=== PATIENT | male | born 1960 | race Caucasian/White ===

== ENCOUNTER → 2019-10-27 14:52 | Outpatient (BNVA) | payer SELFPAY | PROVIDERS: Family Provider Family Medicine; PCP Family Medicine; Visit Provider Nurse Practitioner | DX: F33.3 Major depressive disorder, recurrent, severe with psychotic symptoms (principal) | CPT/HCPCS: 99213 ==

== ENCOUNTER → 2020-04-21 07:41 | Outpatient (BNVA) | payer SELFPAY | PROVIDERS: Family Provider Family Medicine; PCP Family Medicine; Visit Provider Nurse Practitioner | DX: F33.3 Major depressive disorder, recurrent, severe with psychotic symptoms (principal) | CPT/HCPCS: 99214 ==

== ENCOUNTER → 2020-06-09 09:04 | Outpatient (BNVA) | payer SELFPAY | PROVIDERS: Family Provider Family Medicine; PCP Family Medicine; Visit Provider Nurse Practitioner | DX: F33.3 Major depressive disorder, recurrent, severe with psychotic symptoms (principal) | CPT/HCPCS: 99214 ==

== ENCOUNTER → 2020-08-25 08:29 | Outpatient (BNVA) | payer SELFPAY | PROVIDERS: Family Provider Family Medicine; PCP Family Medicine; Visit Provider Nurse Practitioner | DX: F33.3 Major depressive disorder, recurrent, severe with psychotic symptoms (principal) | CPT/HCPCS: 99214 ==

== ENCOUNTER → 2020-10-14 10:17 | Outpatient (BNVA) | payer SELFPAY | PROVIDERS: Family Provider Family Medicine; PCP Family Medicine; Visit Provider Nurse Practitioner | DX: F33.3 Major depressive disorder, recurrent, severe with psychotic symptoms (principal); F41.1 Generalized anxiety disorder | CPT/HCPCS: 99214 ==

== ENCOUNTER → 2021-01-03 14:00 | Outpatient (BNVA) | payer MEDICARE, SELFPAY | PROVIDERS: Family Provider Family Medicine; PCP Family Medicine; Visit Provider Nurse Practitioner | DX: Z79.899 Other long term (current) drug therapy (principal); F41.1 Generalized anxiety disorder; F33.3 Major depressive disorder, recurrent, severe with psychotic symptoms | CPT/HCPCS: 99214 ==

== ENCOUNTER 2021-01-04 10:25 | Outpatient (CLI) | payer MEDICARE, SELFPAY ==
--- NOTE | 2021-01-04 10:47 | XR_ITS ---
WS: [id number] LUMBAR SPINE TECHNIQUE: 3 views of the lumbar spine CLINICAL INFORMATION: LUMBAGO COMPARISON: None. FINDINGS: Five [id number] lumbar vertebral bodies. Osteopenia. Mild spondylitic changes lumbar spine. Aort ic calcification. Slight retrolisthesis L3 on L4 and L4 on L5. Moderate facet arthropathy L4-L5 and L 5-S1. Mild disc space narrowing worse at L3-L4 and L5-S1. No acute compression fractures. XR/XR lumbar spine 2-3V* [id number] IMPRESSION: 1. Mild lumbar curve convex left with osteopenia. 2. Mild spondylitic changes with disc space narrowing worse at L3-L4 L5-S1. 3. No acute compression fractures. 4. Moderate facet arthropathy L4-L5 and L5-S1.
== END 2021-01-04 10:26 | disposition home or self-care (01) ==
PROVIDERS: PCP Nurse Practitioner Family; Visit Provider Nurse Practitioner Family
DX: M54.5 Low back pain (principal); M85.88 Other specified disorders of bone density and structure, other site; M47.816 Spondylosis without myelopathy or radiculopathy, lumbar region; M47.817 Spondylosis without myelopathy or radiculopathy, lumbosacral region
CPT/HCPCS: 72100

== ENCOUNTER → 2021-05-12 07:57 | Outpatient (BNVA) | payer MEDICARE, MEDICAID, SELFPAY | PROVIDERS: PCP Nurse Practitioner Family; Visit Provider Nurse Practitioner | DX: F33.3 Major depressive disorder, recurrent, severe with psychotic symptoms (principal); F41.1 Generalized anxiety disorder | CPT/HCPCS: 99214 ==

== ENCOUNTER 2021-07-18 14:45 | Outpatient (RCR) | payer MEDICARE, SELFPAY | END 2021-07-23 23:59 | disposition home or self-care (01) | LOC: SPT 14:45 | PROVIDERS: PCP Nurse Practitioner Family; Visit Provider Nurse Practitioner Family | DX: R53.1 Weakness (principal) | CPT/HCPCS: 97161 ==

== ENCOUNTER 2021-07-24 06:00 | Outpatient (RCR) | payer MEDICARE, SELFPAY | END 2021-08-22 23:59 | disposition home or self-care (01) | LOC: SPT 06:00 | PROVIDERS: PCP Nurse Practitioner Family; Visit Provider Nurse Practitioner Family | DX: R53.1 Weakness (principal) | CPT/HCPCS: 97110; 97116 ==

== ENCOUNTER → 2021-08-09 15:05 | Outpatient (BNVA) | payer MEDICARE, SELFPAY | PROVIDERS: PCP Nurse Practitioner Family; Visit Provider Nurse Practitioner | DX: F33.3 Major depressive disorder, recurrent, severe with psychotic symptoms (principal); F41.1 Generalized anxiety disorder | CPT/HCPCS: 99214 ==

== ENCOUNTER 2022-02-18 10:08 | Inpatient (IN) | payer MEDICARE, SELFPAY ==
[2022-02-18] VITALS (35 sets, daily range): BP systolic 107–193; BP diastolic 58–141; PULSE 80–129; RESP 10–43; TEMP 36.5–37.1; O2SAT 92–98; BMI 31.1
--- NOTE | 2022-02-18 10:25 | ECG_ITS ---
[facility] Test Date: 2022-02-18 Pat Name: Jose Juan Zapata Department: Room: ICU12 Gender: Male Doctor Of Dental Surgery: : 1960 Requested By: Ramin Perez Order Number: [id number] Magi MD: Fer Vega M.D. Measurements Intervals [place] Rate: 111 P: 60 TX: 166 QRS: -12 QRSD: 97 T: -58 QT: 363 QTc: 494 Interpretive Statements SINUS TACHYCARDIA INFERIOR WALL ST ELEVATION AK OF INDETERMINATE AGE Compared to ECG 02/18/2022 10:25:28 Intraventricular conduction delay no longer present ST (T wave) deviation no longer present Myocardial infarct finding no longer present Electronically Signed On 02-18-2022 20:26:03 CDT by Fer Vega M.D. [id number]
--- NOTE | 2022-02-18 10:25 | XRR_ITS ---
PROCEDURE INFORMATION: Exam: XR Chest Exam date and time: 02/18/2022 10:32 AM Age: 61 years old Clinical indication: Pain; Chest pressure; Additional info: Cp TECHNIQUE: Imaging protocol: XR of the chest. Views: 1 view. COMPARISON: CR Chest 2 views* [id number] 06/13/2018 5:03 PM FINDINGS: Lungs: The lung parenchyma is clear. Pleural spaces: No pneumothorax. No pleural effusion. Heart/Mediastinum: The cardiomediastinal silhouette is within normal limits. Bones/joints: Unremarkable. XR/XR chest 1V portable [id number] IMPRESSION: No acute cardiopulmonary abnormality.
--- NOTE | 2022-02-18 10:29 | ED_ITS ---
HPI - Chest Pain General: Chief Complaint: Chest Pain Stated Complaint: CP Time Seen by Provider: 02/18/22 10:25 Source: patient Mode of arrival: ambulatory Limitations: no limitations History of Present Illness: 61-year-old male states that he has had some left- sided chest pain along with pain into his shoulder since this morning. States pain is a pressure type pain rates it a 6 out of 10. Does have a history of high blood pressure he denies any cardiac history. He states his pain is currently a 7 out of 10 denies any worsening improving factors denies any shortness of breath or fever. Associated symptoms: Deny abdominal pain, dyspnea, fever(s), nausea or vomiting Review of Systems Const: Denies: fever(s), chills, body aches or change in appetite Eyes: Denies: blurry vision or eye discomfort ENMT: Denies: throat pain or dental pain Card: Reports: chest pain Resp: Denies: dyspnea GI: Denies: abdominal pain, nausea, vomiting or diarrhea : Denies: dysuria Musc: Denies: neck pain or back pain Skin/Breast: Denies: rash Neuro: Denies: headache(s) Psych: Denies: depression Gomez/Lymph: Denies: easy bruising All/Imm: Denies: urticaria PFSH ED PFSH: Medical History Generalized anxiety disorder Major depressive disorder, recurrent, severe with psychotic symptoms On combination antipsychotic drug therapy Psychiatric care Social History Smoking and tobacco status: former smoker Physical Exam Const: COMMON NORMALS: patient oriented x3 HENMT: COMMON NORMALS: normocephalic and atraumatic HEAD & SCALP: normocephalic and atraumatic Eye: COMMON NORMALS: Equal, round and reactive pupils present and EOMs intact bilaterally PUPIL: Yes Equal, round and reactive pupils present Neck/C-Spine: COMMON NORMALS: full ROM and supple Chest: COMMONS NORMALS: normal inspection of the chest and normal palpation of entire chest wall Resp: COMMON NORMALS: normal respiratory effort, No retractions, No use of accessory muscles and clear to auscultation bilaterally AUSCULTATION: clear to auscultation bilaterally Cardio: COMMON NORMALS: regular rate, regular rhythm and No murmurs present (Cardio) RATE: regular rate RHYTHM: regular rhythm GI: COMMON NORMALS: Normal to inspection, nondistended, normoactive bowel sounds present, Soft to palpation, non-tender and no masses PALPATION: Yes Soft to palpation Extremity: COMMON NORMALS: normal to inspection and full ROM Neuro: COMMON NORMALS: patient oriented x3, moves all extremities and no focal motor deficits Psych: COMMON NORMALS: mental status grossly normal, Normal thought process present and cooperative THOUGHT PROCESS: Normal thought process present Skin: COMMON NORMALS: no rashes or lesions noted and no wounds GENERAL SKIN EXAM: no rashes or lesions noted Course Vital Signs: Vital signs: Vital Signs Temperature 97.7 F 02/18/22 10:11 Pulse Rate 105 H 02/18/22 10:11 Respiratory Rate 22 H 02/18/22 10:11 Pulse Oximetry 98 02/18/22 10:11 MDM - Chest Pain Medical Decision Making Patient presents here with chest pain EKG shows an ST elevation [place] Operating Room Nurse was activated patient given aspirin , heparin and Plavix and taken to the Operating Room Nurse. EKG Data EKG 1: I personally reviewed and interpreted this EKG as follows: EKG interpretation date: 02/18/22 EKG interpretation time: 10:25 Interpretation: sinus tach hr 120 st elevation ii, iii, avf Discharge Plan Discharge Patient Disposition: Admitted As Inpatient Clinical Impression: ST elevation myocardial infarction (STEMI) Condition: Stable Prescriptions: No Action lisinopril-hydrochlorothiazide 20-12.5 mg tablet 1 tab PO DAILY 0RF cephalexin 500 mg capsule 500 mg PO BID 7 Days Qty: 14 0RF mupirocin 2 % ointment 1 applic topical BID 14 Days Qty: 22 1RF Jardiance 10 mg tablet 10 mg PO QAM 0RF trazodone 50 mg tablet 50 mg PO .HS Qty: 30 2RF fluoxetine [Prozac] 40 mg capsule 40 mg PO DAILY Qty: 30 2RF aripiprazole [Abilify] 5 mg tablet 5 mg PO DAILY Qty: 30 2RF clonazepam 0.5 mg tablet 0.5 mg PO DAILY PRN (Reason: anxiety) Qty: 30 2RF Referrals: Jame Moore NP [Primary Care Provider] - Coding Level of Care Code ED Training And Documentation Specialist for Chg Cain
[2022-02-18] MEDS: heparin 5,000 unit/mL INJ 1 mL 4000 UNIT IVP (10:31)
--- NOTE | 2022-02-18 10:31 | XACV_ITS ---
Exam Room: 2 Ht: 183 cm Wt: 100 kg BSA: 2.27 m2 Gender: Male : 1960 Exam Priority: Routine Procedure(s): Procedure Description: Diagnostic procedure Procedure Description: PCI procedure Procedure Description: Coronary IVUS Procedure Description: Drug Eluting Coronary Stent Procedure Description: PTCA Procedure Description: Miscellaneous Procedure Description: ACT Procedure Description: Coronary Angiography Diagnostic Cath Status: Emergency Diagnostic Findings * Left Main has no disease. * Circumflex has no disease. * Proximal Left Anterior Descending: obstructive 60% stenosis, MABEL: 3 flow. * Proximal Right Coronary Artery: subtotal occlusion, MABEL: 1 flow. * Coronary angiography shows right dominance. PCI Status: Emergency PCI Indication: STEMI - Immediate PCI for STEMI Interventional Findings * PROCEDURE DETAIL: We engaged RCA with JR4 guide catheter. IV heparin was administered to maintain ACT above 250 S. 0.014 run-through guidewire was used to cross of proximal RCA stenosis. This was followed by predilation with 2.5 x 12 mm noncompliant balloon. We used IVUS to size the artery. This was followed by placement of 4.5 x15 mm resolute Heron drug-eluting stent. Post stenting IVUS was performed and is negative underexpansion was seen. We postdilated the stent with 4.5 x 12 mm NC balloon. At this time final angiogram showed excellent stent expansion, MABEL-3 flow and no residual stenosis. Patient left the Guest Services Agent in stable condition. * Proximal Right Coronary Artery: 99% stenosis treated with a AB TREK 2.50X12 RX BALLOON, MDT R HERON 4.5X15 MOLLY, and MDT WALDEMAR EUPHORA RX [id number] BALLOON. 0% residual stenosis, MABEL: 3 flow. Conclusions 1. There is subtotal occlusion of proximal RCA. This is the culprit vessel for ST elevation [place]. 2. Moderate LAD stenosis. 3. Proximal Right Coronary Artery was treated with a Balloon, Drug Eluting Stent, and Balloon. Recommendations * Transfer to ICU. * Aspirin and plavix for atleast 1 year. * High intensity statin therapy. * Order echocardiogram. * Outpatient stress test to assess proximal LAD stenosis. * Outpatient cardiology follow up in 4 weeks. Interventional RX Recommendation: PCI w/o planned CABG Diagnostic RX Recommendation: PCI w/o planned CABG Anticoagulation: Heparin Pressures Phase:Rest AO : 157 / 112 ( 134 ) @ 12:03:00 PM 145 / 102 ( 119 ) @ 12:18:00 PM 156 / 106 ( 129 ) @ 12:22:00 PM 155 / 100 ( 125 ) @ 12:25:00 PM Clinical Evaluation EBL: 5mL-10mL Procedural Details Pre-Procedure Time Out. Identified patient by full name and date of as verbalized by the patient/guarantor. Does the consent match the physician's order: N/A Emergent; Informed Consent not obtained due to time critical life threat. Accurate & Complete Informed Consent: N/A Emergent; Informed Consent not obtained due to time critical life threat. Inpatient/Outpatient History & Physical on Chart: N/A Emergent; Informed Consent not obtained due to time critical life threat. If H&P is completed, is and addenduem needed: N/A; If yes, is the addendum complete: N/A. Visualize and Verify Site with Patient/Guarantor: N/A. Relevant Radiology Images available: N/A. The risks, benefits, and alternatives of sedation and/or procedure were discussed by physician. The patient agrees to continue. Procedure started. [facility] Clinical Fraility Score: 3: Managing Well. Guest Services Agent Indications: ACS <= 24 hours. Chest Pain Symptom Assessment: Typical Angina Symptoms. Cardiovascular Instability: No, if yes, Persistant Ischemic Symptoms. Correct patient, site and procedure confirmed by cath team. Current diagnosis: STEMI. PERRLA. Strong, equal hand bruise trimmer bilaterally. Lungs clear x 5 lobes. IV Site on Arrival: 20 gauge in the left anticubital. IV Fluids: 0.9% NaCl at KVO. 0 mL infused prior to wheelabrator operator. Pre Procedural Pulses: bilateral radial was 2+. Pre Procedural Pulses: bilateral dorsalis pedis was 2+. Oxygen started at 2liters/min via nasal canula. right groin was prepped with chloroprep then draped in the usual sterile fashion. right radial was prepped with chloroprep then draped in the usual sterile fashion. Physician notified. Baseline sample Acquired. HR: 110 BPM. Physician arrived. Physician scrubbed in. Immediate Pre-Procedure Time Out. Correct Patient: Yes; Correct Procedure: Yes; Correct Site: Yes; Correct Patient Position: Yes; Correct Supplies: Yes; Dried Flammable Prep: Yes Blood Products Available: N/A;. Lidocaine 1% infiltrated to the right radial. AP pads applied to patient chest. Arterial access obtained. 6 latvian JR 4 guide catheter was inserted over the wire. Runthrough guidewire was advanced through the guide catheter to lesion in the prox RCA. Inflation number : 1 A AB TREK 2.50X12 RX BALLOON was prepped and advanced across the Prox RCA , then inflated to 12 MIGUEL ANGEL for 0:12 seconds. Inflation number: 2 The AB TREK 2.50X12 RX BALLOON was reinflated across the Prox RCA, to 12 MIGUEL ANGEL for 0:15 seconds. Balloon inserted to lesion in the prox RCA. Balloon out. Results checked. IVUS catheter advanced through the prox RCA lesion. IVUS run performed of Prox RCA. IVUS catheter removed. Stent inserted to lesion in the prox RCA. Unable to cross lesion with stent. Intact stent removed. Guideliner catheter inserted and positioned in RCA. Stent inserted to lesion in the prox RCA. Admit Source: Emergency department. Inflation Number : 3 A RACHEL Millan HERON 4.5X15 MOLLY -Lot Number# [id number] Exp 09/27/2022 was prepped and advanced across the Prox RCA. The stent was deployed at 14 MIGUEL ANGEL for 0:20 seconds. Guideliner and stent balloon removed over the wire. Results checked. ACT drawn. Results 369 seconds. Therapeutic limits - pre-heparin administration 90-150 seconds and monitoring heparin during a vascular procedure >250 seconds. IVUS catheter reinserted to Prox RCA. Balloon inserted to lesion in the prox RCA. IVUS catheter removed. Inflation number : 4 A RACHEL MEDEIROS EUPHORA RX [id number] BALLOON was prepped and advanced across the Prox RCA , then inflated to 12 MIGUEL ANGEL for 0:16 seconds. IVUS run performed to Prox RCA. Balloon out. Results checked. Guide catheter and Runthrough wire out. A 5 latvian TIG catheter in over wire. Multiple views taken of left coronary artery. Catheter redirected to the RCA. ACT drawn. Results 231 seconds. Therapeutic limits - pre-heparin administration 90-150 seconds and monitoring heparin during a vascular procedure >250 seconds. Catheter out. A TR Band was successful obtaining hemostatsis at the Right Radial artery insertion site. Post Procedure: Pulses reassessed and unchanged. PERRLA. Strong, equal hand bruise trimmer bilaterally. No VTE prophylaxis required. Total IV fluids: 250 mL. Medication's Wasted: Lidocaine 1% = 6 mL. Medication's Wasted: Nitro = 49.8 mg. Medication's Wasted: Heparin = 3000 u. PCI Indication: STEMI. Post-op diagnosis: STEMI, Severe obstructive CAD Prox RCA. Complications: none. Estimated blood loss: 5mL-10mL. Responsiveness - Normal response to verbal stimuli; alert and oriented, PERRLA. Airway - Unaffected, no intervention required; spontaneous ventilation. Circulation: W/N/L, pulses unchanged. Nausea/Vomiting: No. Procedure completed. Patient transferred by wheelchair to ICU. Vital chart was stopped. Access Site Site: Right Radial artery Sheath Size: 6 Fr Hemostasis Method: TR Band Hemostasis Success: Successful Procedure Medications Start: 10:58 AM Stop: 10:58 AM Medication: Versed Amount: 1 mg Route: I.V. Start: 10:59 AM Stop: 10:59 AM Medication: Fentanyl Amount: 50 mcg Route: I.V. Start: 11:03 AM Stop: 11:03 AM Medication: Heparin Amount: 4000 units Route: I.V. Start: 11:10 AM Stop: 11:10 AM Medication: Heparin Amount: 2000 units Route: I.V. Start: 11:29 AM Stop: 11:29 AM Medication: Versed Amount: 1 mg Route: I.V. Start: 11:03 AM Stop: 11:03 AM Medication: Nitrogylcerin Amount: 200 mcg Route: I.A. Start: 11:35 AM Stop: 11:35 AM Medication: Heparin Amount: 2000 units Route: I.V. I, the attending physician, have reviewed and verified all procedure medications. Yes, all medications given per verbal order Report Signatures Finalized by Fer Vega MD on 02/25/2022 11:54 PM
[2022-02-18] MEDS: clopidogrel 300 mg Tablet 600 MG PO (10:32)
[2022-02-18] MEDS: aspirin 81 mg Chew Tablet 324 MG PO (10:32)
[2022-02-18] MEDS: ondansetron 2 mg/ML SDV 2 mL 4 MG IVP ×2 (10:37→14:52)
[2022-02-18] MEDS: morphine 4 mg/mL SDV 1 mL IVP (10:37)
[2022-02-18 10:42] LABS: Basophils # 0.1 10^3/uL (0.0-0.1); Basophils % 0.6 %; Eosinophils # 0.1 10^3/uL (0.0-0.8); Eosinophils % 0.6 %; Hematocrit 50.6 % (42.0-52.0); Hemoglobin 18.1 g/dL (11.7-16.6); Lymphocytes # 2.1 10^3/uL (0.8-4.8); Lymphocytes % 16.5 %; Mean Corpuscular HGB Conc 35.8 g/dL (30.0-36.0); Mean Corpuscular Hemoglobin 29.4 pg (28.0-34.0); Mean Corpuscular Volume 82.1 fl (80-94); Monocytes # 0.9 10^3/uL (0.2-0.9); Monocytes % 7.3 %; Neutrophils # 9.39 10^3/uL (1.8-7.7); Neutrophils % 74.1 %; Nucleated Red Blood Cells % 0 %; Platelet Count 177 10^3/cmm (130-400); Red Blood Count 6.16 10^6/uL (4.1-5.3); Red Cell Distribution Width 12.6 % (12.1-15.1); White Blood Count 12.7 10^3/uL (4.0-10.0)
--- NOTE | 2022-02-18 10:45 | PM.HP ---
Providers/Chief Complaint Admitting Physician: Fer Vega MD/ Cardiology Primary Care Provider: Jame Moore NP Chief Complaint: CP History of Present Illness Jose Juan Zapata is a 61 year old male with a past medical history of hypertension and diabetes not taking any medications has presented with 2 to 3 hours of chest pain symptoms. It is substernal and radiating to the left arm. EKG performed shows ST elevations in inferior leads. Denies any prior cardiac history. Review of Systems Const: Denies: fever(s), chills, body aches or change in appetite Eyes: Denies: blurry vision or eye discomfort ENMT: Denies: throat pain or dental pain Card: Reports: chest pain Resp: Denies: dyspnea GI: Denies: abdominal pain, nausea, vomiting or diarrhea : Denies: dysuria Musc: Denies: neck pain or back pain Skin/Breast: Denies: rash Neuro: Denies: headache(s) Psych: Denies: depression Gomez/Lymph: Denies: easy bruising All/Imm: Denies: urticaria Medications/Allergies Home Medications Medication Instructions Recorded Confirmed Last Taken Type lisinopril 20 1 tab PO DAILY 10/27/19 08/24/21 Unknown History mg-hydrochlorothiazide 12.5 mg tablet cephalexin 500 mg capsule 500 mg PO BID 7 Days #14 cap 08/08/21 08/24/21 Unknown Rx mupirocin 2 % topical ointment 1 applic TOPICAL BID 14 Days #22 g 08/08/21 08/24/21 Unknown Rx aripiprazole 5 mg tablet (Abilify) 5 mg PO DAILY #30 tab 08/09/21 08/24/21 Unknown Rx clonazepam 0.5 mg tablet 0.5 mg PO DAILY PRN #30 tab 08/09/21 08/24/21 Unknown Rx empagliflozin 10 mg tablet 10 mg PO QAM 08/09/21 08/24/21 Unknown History (Jardiance) fluoxetine 40 mg capsule (Prozac) 40 mg PO DAILY #30 cap 08/09/21 08/24/21 Unknown Rx trazodone 50 mg tablet 50 mg PO .HS #30 tab 08/09/21 08/24/21 Unknown Rx Allergies Allergy/AdvReac Type Severity Reaction Status Date / Time Sulfa (Sulfonamide Allergy Unknown Verified 02/18/22 10:11 Antibiotics) PFSH Acute PFSH: Medical History Generalized anxiety disorder Major depressive disorder, recurrent, severe with psychotic symptoms On combination antipsychotic drug therapy Psychiatric care Social History Smoking and tobacco status: former smoker Vitals/I&O/Wt Last Vital Signs Temp 97.7 F 02/18/22 10:11 Pulse 105 H 02/18/22 10:11 Resp 18 02/18/22 10:37 Pulse Ox 98 02/18/22 10:11 Weight last 48 hrs Weight 230 lb Physical Exam Const: OTHER: GENERAL: Patient is alert, awake and oriented x3. [] NECK: No jugular vein distension. [] HEENT: No cyanosis. No icterus. No pallor. [] HEART: Tachycardia, regular S1 and S2. No murmur, rub or gallop. [] LUNGS: Clear to auscultate bilaterally. [] ABDOMEN: Soft, nontender and nondistended. Positive bowel sounds. No guarding, rebound or tenderness. [] CENTRAL NERVOUS SYSTEM: Grossly nonfocal. [] EXTREMITIES: Lower extremities with no edema bilaterally. Pulses palpable in the lower extremities, both dorsalis pedis and posterior tibial. [] Data : 02/18/22 10:30 02/18/22 10:30 A&P Assessment and plan (1) ST elevation myocardial infarction (STEMI): Status: Acute (2) Generalized anxiety disorder: Status: Acute (3) Major depressive disorder, recurrent, severe with psychotic symptoms: Status: Acute (4) Hypertension: Status: Acute (5) Diabetes: Status: Acute Plan Patient has presented with inferior wall acute ST elevation [place]. We are proceeding with emergent coronary angiogram with possible percutaneous coronary intervention. Risks and benefit of the procedure of been discussed with the patient wants to proceed with the procedure. Patient has received aspirin and Plavix. We will continue with these. IV heparin bolus administered. Ordering echocardiogram. Patient will be transferred to ICU postprocedure. We will consult medicine team for management of her medical issues. Attestations Medical Necessity Statement*: Care expected to cross 2 midnights. Patient has presented with acute ST elevation [place] and going to cardiac Unleavened Dough Mixer. Coding Level of Care Code Acute Gaming Surveillance Observer for Rahat Barlow Diagnoses ST elevation myocardial infarction (STEMI) I21.3 Generalized anxiety disorder F41.1 Major depressive disorder, recurrent, severe with psychotic symptoms F33.3 Hypertension I10 Diabetes E11.9
--- NOTE | 2022-02-18 10:49 | PC.NURSE ---
Tim here to transport pt.
[2022-02-18 10:54] LABS: Glucose Point of Care 268 mg/dL (70-110)
[2022-02-18 10:57] LABS: Alanine Aminotransferase 49 U/L (0-41); Albumin Level 4.1 g/dL (3.5-5.2); Alkaline Phosphatase 158 IU/L (40-130); Anion Gap 22.2 (5-19); Aspartate Amino Transferase 37 U/L (0-40); Blood Urea Nitrogen 9 mg/dL (8-23); Calcium 9.5 mg/dL (8.5-10.5); Carbon Dioxide 19 mmol/L (22-29); Chloride 97 mmol/L (98-107); Creatinine Clr Calc Pharmacy 121.0927; Globulin 3.8 g/dL (1.3-4.6); Glomerular Filtration Rate 98.3 mL/min (90-130); Glucose 339 mg/dL (65-115); Osmolality Calculated 292 mOsm/kg (285-295); Potassium 3.2 mmol/L (3.5-5.1); Sodium 135 mmol/L (136-145); Total Bilirubin 0.8 mg/dL (0.15-1.2); Total Protein 7.9 g/dL (6.6-8.7)
[2022-02-18 11:04] LABS: Troponin(5th) Baseline 95 ng/L (0-15)
--- NOTE | 2022-02-18 11:30 | PC.NURSE ---
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 TR band noted on right wrist. Pt stated he feels much better, he is not hurting like he was this am. Tardive Dyskinesia noted, pt has lip smacking and licking. He has bug bites all over. Pt has limited understanding. Pt oriented to room.
--- NOTE | 2022-02-18 11:51 | USCV_ITS ---
Jose Juan Zapata Age: 61 Gender: M : 1960 Exam Date: 02/18/2022 12:42 Ordering Phys: Fer Vega M.D ([email or web address]) Technologist: Cassandra Rinaldi [place] [facility] [place]ication: Post STEMI BP: 139 / 81 HR: 116 Rhythm: Sinus Technical Quality: Adequate MEASUREMENTS (Male / Female) Normal Values 2D ECHO LV Diastolic Diameter PLAX 5.5 cm 4.2 - 5.9 / 3.9 - 5.3 cm LV Systolic Diameter PLAX 3.9 cm LV Chamber Size 4.2 cm IVS Diastolic Thickness 1.2 cm 0.6 - 1.0 / 0.6 - 0.9 cm IVS Systolic Thickness 0.9 cm LVPW Diastolic Thickness 1.1 cm 0.6 - 1.0 / 0.6 - 0.9 cm LVPW Systolic Thickness 1.6 cm RV Chamber Size 2.8 cm LVOT Diameter 2.0 cm LV Ejection Fraction 2D Teich 56.1 % LV Ejection Fraction MOD 2C 64.1 % LV Ejection Fraction 2C AL 65.0 % LA Diameter 2.8 cm LA Width 2.5 cm LA Height 3.8 cm RA Width 2.6 cm RA Height 2.3 cm Aorta at Sinotubular Diameter 3.1 cm IVC Diameter 1.9 cm M-MODE Aortic Annulus Diameter 3.9 cm LA Ao Ratio MM 0.8 MV E Point Septal Separation 1.1 cm DOPPLER AV Peak Velocity 110.0 cm/s LVOT Peak Velocity 77.0 cm/s AV Area Cont Eq vti 2.9 cm squared AV Area Cont Eq pk 2.3 cm squared MV Area PHT 4.9 cm squared MV E' Velocity 47.5 cm/s Mitral E to MV E' Ratio 8.9 Mitral E to LV E' Lateral Ratio 9.8 Mitral E to LV E' Septal Ratio 8.3 TR Peak Velocity 169.6 cm/s TR Peak Gradient 11.5 mmHg TR Mean Velocity 118.1 cm/s TR Mean Gradient 6.3 mmHg TR Velocity Time Integral 34.9 cm TV Peak E Velocity 53.0 cm/s Right Atrial Pressure 3.0 mmHg Pulmonary Artery Systolic Pressu 14.5 mmHg PV Peak Velocity 81.0 cm/s RV Acceleration Time 0.1 s RV Ejection Time 0.3 s RV AcT/ET 0.5 FINDINGS Left Ventricle Technically limited quality echocardiogram because of poor ultrasonic windows. Normal left ventricular size. LV systolic function is borderline normal with EF 50 to 55%. Regional wall motion abnormalities cannot accurately be assessed because of limited visualization Right Ventricle The right ventricle is normal in size and function. Right Atrium The right atrium is normal in size. Left Atrium The left atrium is normal in size. Mitral Valve Grossly normal without significant stenosis or prolapse. There is no mitral regurgitation. Aortic Valve Structurally normal aortic valve without significant sclerosis or stenosis. There is no aortic regurgitation. Tricuspid Valve Structurally normal tricuspid valve without significant stenosis. Trace tricuspid regurgitation. Pulmonary artery systolic pressure is normal. Pulmonic Valve Not well-visualized Pericardium Normal pericardium without effusion. Aorta Normal ascending aorta dimension. IVC CONCLUSIONS Technically limited quality echocardiogram because of poor ultrasonic windows. LV systolic function is borderline normal with EF 50 to 55%. No regional wall motion normalities cannot be assessed because of limited visualization. No gross valvular abnormalities. Trace tricuspid regurgitation No comparison studies are available Fer Vega MD (Electronically Signed) Final Date: 19 Feb 2022 13:49 S
--- NOTE | 2022-02-18 11:57 | P.CONIM_ITS ---
Providers/Reason For Consult Consulting Physician/Specialty*: Helena Arriaga MD/Internal Medicine Reason for Consult*: Medical Management Attending Physician: Fer Vega M.D Primary Care Provider: Jame Moore NP History of Present Illness History of Present Illness Jose Juan Zapata is a 61 year old male with past medical history of hypertension, diabetes, anxiety, depression presented to the hospital today for complaint of chest pain radiating to shoulder that started this morning. He stated the pain was a pressure type rating 6 out of 10. There were no aggravating or relieving factors for this pain. This above information was obtained by ER note. ED course on arrival to ER pulse 105, respiratory 22, temperature 97.7, pulse ox 98%. Blood pressure 177/112. EKG showed sinus tach heart rate 120, ST elevation in 2 3 aVF with reciprocal changes in V1 V2. STEMI alert was called and patient was emergently taken to the Laboratory Administrative Director for coronary angiogram and potential PCI. He did receive aspirin heparin Plavix in the ER. Medicine has been consulted for medical management of his other medical conditions. Patient seen in ICU status post coronary angiogram.Parents present at bedside. Mom states christine stopped taking all his prescribed medications few months ago and currently does not take anything. He any sob, chest pain at this time. ROS negative except noted above. Lives alone at home. Medications/Allergies Home Medications Medication Instructions Recorded Confirmed Last Taken Type lisinopril 20 1 tab PO DAILY 10/27/19 08/24/21 Unknown History mg-hydrochlorothiazide 12.5 mg tablet cephalexin 500 mg capsule 500 mg PO BID 7 Days #14 cap 08/08/21 08/24/21 Unknown Rx mupirocin 2 % topical ointment 1 applic TOPICAL BID 14 Days #22 g 08/08/21 08/24/21 Unknown Rx aripiprazole 5 mg tablet (Abilify) 5 mg PO DAILY #30 tab 08/09/21 08/24/21 Unknown Rx clonazepam 0.5 mg tablet 0.5 mg PO DAILY PRN #30 tab 08/09/21 08/24/21 Unknown Rx empagliflozin 10 mg tablet 10 mg PO QAM 08/09/21 08/24/21 Unknown History (Jardiance) fluoxetine 40 mg capsule (Prozac) 40 mg PO DAILY #30 cap 11/17/21 12/02/21 Unknown Rx trazodone 50 mg tablet 50 mg PO .HS #30 tab 08/09/21 08/24/21 Unknown Rx Allergies Allergy/AdvReac Type Severity Reaction Status Date / Time Sulfa (Sulfonamide Allergy Unknown Verified 02/18/22 10:11 Antibiotics) PFSH Acute PFSH: Medical History Generalized anxiety disorder Major depressive disorder, recurrent, severe with psychotic symptoms On combination antipsychotic drug therapy Psychiatric care Social History Smoking and tobacco status: former smoker Vitals/I&O/Wt Last Vital Signs Temp 98 F 02/18/22 10:51 Pulse 124 H 02/18/22 10:51 Resp 18 02/18/22 10:51 BP 139/81 02/18/22 10:51 Pulse Ox 96 02/18/22 10:51 Weight last 48 hrs Weight 104.326 kg Physical Exam Narrative: General: Alert oriented x3, patient seen sitting up in bed appearing comfortable. HEENT: Normocephalic, atraumatic, EOMI, breathing normally Cardio: Regular rate rhythm, normal S1-S2, no murmurs Respiratory: Good bilateral air entry, no wheezes no rhonchi appreciated GI: Abdomen soft, nontender, nondistended, bowel sounds + Behavior: Appropriate and cooperative Extremities: no edema, no cyanosis, lots of lesions on b/l LE. (states he gets very frequent tick bites) Data : 02/18/22 10:30 02/18/22 10:30 A&P Assessment and plan (1) Diabetes: Status: Acute (2) Hypertension: Status: Acute (3) ST elevation myocardial infarction (STEMI): Status: Acute (4) Generalized anxiety disorder: Status: Acute (5) Major depressive disorder, recurrent, severe with psychotic symptoms: Status: Acute Plan #Inferior wall ST elevation [place] status post PCI with MOLLY x1 #Hypertension -Continue on aspirin 81, atorvastatin 80, Plavix 75, metoprolol tartrate 50 twice daily - Check lipid profile ? Await echocardiogram results. It was ordered in ER ? Management as per cardiology team. -We will confirm home blood pressure medication and make adjustments accordingly. ? We will continue for now. -Monitor renal function given recent angiogram #Diabetes mellitus type 2 complicated by peripheral neuropathy #History of peripheral neuropathy based on notes from podiatry - Sliding scale medium-dose intensity ? Check hemoglobin A1c. A1C 10.1. Will start lantus 5 unit QHS and titrate up. - Will need glucometer, strips, lancets [place]. - Has not filled any scripts since september 2021. #Generalized anxiety disorder #Major depressive disorder ? Continue fluoxetine 40 daily ? Continue aripiprazole 5 daily Full code Diet: Carbohydrate consistent diet, cardiac DVT prophylaxis Lovenox 40 daily Talked to pharmacy.He is not on any home medications. Consult Attestations Medical Necessity Statement: Expected to cross 2 midnights for management of above. Coding Level of Care Code Acute Field Care Manager for Rahat Mastersd Diagnoses Diabetes E11.[address] elevation myocardial infarction (STEMI) I21.3 Generalized anxiety disorder F41.1 Major depressive disorder, recurrent, severe with psychotic symptoms F33.3
--- NOTE | 2022-02-18 12:25 | ECG_ITS ---
[facility] Test Date: 2022-02-18 Pat Name: Jose Juan Zapata Department: Room: ICU12 Gender: Male Graduate Teaching Associate: : 1960 Requested By: Ramin Perez Order Number: [id number] Reading MD: Fer Vega M.D. Measurements Intervals [facility] Rate: 98 P: 52 HI: 136 QRS: -25 QRSD: 94 T: -59 QT: 378 QTc: 483 Interpretive Statements SINUS RHYTHM INFERIOR WALL ST ELEVATION MT OF INDETERMINATE AGE Compared to ECG 02/18/2022 13:39:20 Sinus tachycardia no longer present Electronically Signed On 02-18-2022 20:33:23 CDT by Fer Vega M.D. [id number]
[2022-02-18] MEDS: insulin lispro 100 unit/1 mL SUBCUT ×2 (13:15→17:48)
[2022-02-18] MEDS: metoprolol tartrate 50 mg Tablet PO (13:15)
[2022-02-18] MEDS: lisinopril 5 mg Tablet PO (13:16)
[2022-02-18] MEDS: potassium chloride ER 20 mEq Tablet 40 MEQ PO (14:29)
[2022-02-18] MEDS: hyDRALAzine 20 mg/mL INJ 1 mL IVP (14:29)
[2022-02-18 14:40] LABS: Chol HDL Ratio 4.24 mg/dL (1.0-5.00); Cholesterol 161 mg/dL (0-200); HDL Cholesterol 38 mg/dL (60-100); LDL Cholesterol Calculated 92 mg/dL (50-129); Triglycerides 157 mg/dL (0-150); VLDL Cholestrol Calculation 31 mg/dL (0-30)
[2022-02-18 14:42] LABS: Troponin 5 2HR 7314 ng/L (0-15)
[2022-02-18 14:44] LABS: Troponin 5 2HR Delta 7219 ABS# (0-10)
--- NOTE | 2022-02-18 14:55 | PC.NURSE ---
Pt urinated all over himself trying to use urinal. Then pt threw up after coughiing. Linen change and bathing assistance provided.
[2022-02-18 14:59] LABS: Estmated Average Glucose 246; Hemoglobin A1C 10.2 % (4.0-6.0)
--- NOTE | 2022-02-18 16:25 | ECG_ITS ---
[facility] Test Date: 2022-02-18 Pat Name: Jose Juan Zapata Department: Room: Gender: Male Controls Engineer: : 1960 Requested By: Ramin Perez Order Number: [id number] Magi MD: Fer Vega M.D. Measurements Intervals [place] Rate: 120 P: 46 NH: 162 QRS: 61 QRSD: 113 T: 91 QT: 299 QTc: 423 Interpretive Statements SINUS TACHYCARDIA WITH FREQUENT SUPRAVENTRICULAR PREMATURE COMPLEXES MODERATE INTRAVENTRICULAR CONDUCTION DELAY [110+ ms QRS DURATION] MARKED ST ELEVATION, CONSIDER INFERIOR INJURY [MARKED ST ELEVATION W/O NORMALLY INFLECTED T-WAVE IN II/aVF] ACUTE SD Compared to ECG 06/13/2018 18:36:32 Intraventricular conduction delay now present ST (T wave) deviation now present Myocardial infarct finding now present Sinus rhythm no longer present Electronically Signed On 02-18-2022 20:37:07 CDT by Fer Vega M.D. [id number]
[2022-02-18 16:35] LABS: Thyroid Stimulating Hormone 0.62 uIU/mL (0.27-4.20)
--- NOTE | 2022-02-18 17:12 | PC.NURSE ---
Pt urinated all over himself again, while trying to use urinal. Linen change and and bathing resident assistant provided.
[2022-02-18 17:14] LABS: Troponin 5 6HR > 10000 ng/L (0-15)
[2022-02-18 17:47] LABS: Glucose Point of Care 284 mg/dL (70-110)
[2022-02-18] MEDS: nitroglycerin 0.4 mg sublingual Tablet SUBLINGUAL ×3 (18:36→19:00)
[2022-02-18] MEDS: metoprolol tartrate 50 mg Tablet 100 MG PO (18:40)
[2022-02-18] MEDS: sodium chloride 0.9% 1,000 ML 100 ML IV (18:44)
--- NOTE | 2022-02-18 19:51 | ECG_ITS ---
[facility] Test Date: 2022-02-18 Pat Name: Jose Juan Zapata Department: Room: ICU12 Gender: Male Medical File Clerk: : 1960 Requested By: Fer Vega Order Number: [id number] Magi MD: Fer Vega M.D. Measurements Intervals [place] Rate: 118 P: 61 RI: 164 QRS: -24 QRSD: 91 T: -61 QT: 404 QTc: 568 Interpretive Statements SINUS TACHYCARDIA WITH FREQUENT SUPRAVENTRICULAR PREMATURE COMPLEXES POSSIBLE LEFT ATRIAL ENLARGEMENT [-0.1mV P-WAVE IN V1/V2] Compared to ECG 02/18/2022 18:09:26 Sinus rhythm no longer present ST (T wave) deviation no longer present Electronically Signed On 02-19-2022 19:43:04 CDT by Fer Vega M.D. [email or web address]/[id number]
--- NOTE | 2022-02-18 20:27 | PC.NURSE ---
1839: Pt had rhythm change, heart rate 98-145 and complained of left arm pain. Dr Vega notified. Orders for Metoprolol 100mg Po now received. With the ongoing pain nitro sublingual admin, pt stated arm pain 9. Metorpolol admin. 1849: Pt still complaining of left arm pt, said it was better but still rated it the same at 9. No HTN noted on monitor. Heart rate 107. Second sublingual Nitro admin. Pt tolerating B/P morris. Pt had accident with urinal again , Personal care provided. 1899: Pt still saying his left arm hurts, at rating of 8. Pt denies any chest pain. Unable to verify if arm pain related to heart or the BP cuff on his arm. third nitro admin. Assisted patient back to bed. Bedside report completed with JAZMYNE Oliver. 1919: Dr Vega , here in the unit, to check on patient. EKG ordered.
[2022-02-18] MEDS: atorvastatin 40 mg Tablet 80 MG PO (21:01)
[2022-02-18] MEDS: insulin glargine 100 units/1 mL 5 UNIT SUBCUT (21:02)
[2022-02-18 21:08] LABS: Glucose Point of Care 234 mg/dL (70-110)
[2022-02-19] VITALS (36 sets, daily range): BP systolic 113–157; BP diastolic 76–109; PULSE 75–90; RESP 16–32; TEMP 36.6; O2SAT 89–94
[2022-02-19 04:52] LABS: Basophils % 0.2 %; Eosinophils % 0.2 %; Hemoglobin 15.8 g/dL (11.7-16.6); Lymphocytes # 2.2 10^3/uL (0.8-4.8); Lymphocytes % 16.9 %; Mean Corpuscular HGB Conc 34.3 g/dL (30.0-36.0); Mean Corpuscular Hemoglobin 29.4 pg (28.0-34.0); Mean Corpuscular Volume 85.5 fl (80-94); Mean Platelet Volume 12.4 fL (7.4-10.4); Monocytes # 1.1 10^3/uL (0.2-0.9); Monocytes % 8.2 %; Neutrophils # 9.54 10^3/uL (1.8-7.7); Nucleated Red Blood Cells % 0 %; Platelet Count 178 10^3/cmm (130-400); Red Blood Count 5.38 10^6/uL (4.1-5.3); Red Cell Distribution Width 13.5 % (12.1-15.1); White Blood Count 12.9 10^3/uL (4.0-10.0)
[2022-02-19] MEDS: permethrin cream 5% 60 gm 7 APPLIC TOPICAL (05:07)
[2022-02-19 05:08] LABS: Blood Urea Nitrogen 13 mg/dL (8-23); Calcium 8.8 mg/dL (8.5-10.5); Carbon Dioxide 22 mmol/L (22-29); Chloride 102 mmol/L (98-107); Glomerular Filtration Rate 114.6 mL/min (90-130); Glucose 205 mg/dL (65-115); Osmolality Calculated 288 mOsm/kg (285-295); Sodium 136 mmol/L (136-145)
[2022-02-19] MEDS: sodium chloride 0.9% 1,000 ML 100 ML IV (05:08)
[2022-02-19 05:14] LABS: Anion Gap 15.9 (5-19); Potassium 3.9 mmol/L (3.5-5.1)
[2022-02-19 07:34] LABS: Glucose Point of Care 149 mg/dL (70-110)
[2022-02-19] MEDS: ARIPiprazole 10 mg Tablet 5 MG PO (08:19)
[2022-02-19] MEDS: clopidogrel 75 mg Tablet PO (08:19)
[2022-02-19] MEDS: metoprolol tartrate 50 mg Tablet PO ×2 (08:19→20:24)
[2022-02-19] MEDS: aspirin 81 mg EC Tablet PO (08:19)
[2022-02-19] MEDS: insulin lispro 100 unit/1 mL SUBCUT ×3 (08:19→17:06)
[2022-02-19] MEDS: lisinopril 10 mg Tablet 5 MG PO (08:19)
[2022-02-19] MEDS: fluoxetine 20 mg Capsule 40 MG PO (08:19)
--- NOTE | 2022-02-19 09:03 | PC.CHAP ---
Pastoral Care Encounter/Spiritual Assessment Type of Contact [] Declined hand screen printer visit [] Patient/Family/Request visit [] Outpatient visit [] Follow-up visit [] Physician referral [] Code/Alert [x] Routine visit [] Staff referral [] Actively dying [] Patient sleeping [] Family support [] [] Out of room [] Palliative care [] [] Receiving care in room [] Pre-surgical visit [] Trauma [] Long length of stay [x] ICU visit [] Other: Relational/Emotional Strength [] Patient feels connected with others/family/visitors/staff [] Distress [] Loneliness/isolation [] Abandonment Spirituality of Patient [] Person of Sandi [] Attends Evangelical of their Sandi [] Believes in Prayer [] Reads Bible or Christianity materials [] There are Spiritual issues to be addressed Curing Press Operator Interventions [x] Prayer [x] Active listening [x] Non-anxious presence [x] Spiritual/emotional support [] Crisis/trauma care [] Spiritual counseling [] Bereavement support [] Provided bereavement packet [] Provided Bible/devotional materials [] Provided toy/stuffed animal, coloring book to patient or family member [] Provided Communion [] Anointing/[place] [] Salvation [x] Completed spiritual assessment [] Other: Impact on Illness or Injury [] Angry [] Fearful [] Anxious [] Often cries [] Exhaustion [] Unable to work [] Unable to attend rastafarian [] Unable to walk/stand [] Unable to read [] Unable to drive [] Unable to eat/drink [] Unable to sleep [] Unable to be with family [] Patient intubated [] Other: Summary patinet feeling stronger... opened window shades for sun light,,, Time spent with patient 5 min
--- NOTE | 2022-02-19 10:43 | P.PN_ITS ---
Subjective Subjective: Patient is doing well. He underwent successful revascularization of proximal RCA with MOLLY X 1. Vitals/I&O/Wt Last Vital Signs Temp 98.5 F 02/18/22 20:00 Pulse 78 02/19/22 10:00 Resp 20 H 02/19/22 10:00 BP 122/82 02/19/22 10:00 Pulse Ox 93 02/19/22 09:00 02/18/22 02/19/22 02/19/22 22:59 06:59 14:59 Intake Total 520 / 1220 1480 / 2700 200 / 200 Output Total 750 / 1200 500 / 1700 Balance -230 / 20 980 / 1000 200 / 200 Weight last 48 hrs Weight 230 lb Physical Exam Const: OTHER: GENERAL: Patient is alert, awake and oriented x3. [] NECK: No jugular vein distension. [] HEENT: No cyanosis. No icterus. No pallor. [] HEART: Tachycardia, regular S1 and S2. No murmur, rub or gallop. [] LUNGS: Clear to auscultate bilaterally. [] ABDOMEN: Soft, nontender and nondistended. Positive bowel sounds. No guarding, rebound or tenderness. [] CENTRAL NERVOUS SYSTEM: Grossly nonfocal. [] EXTREMITIES: Lower extremities with no edema bilaterally. Pulses palpable in the lower extremities, both dorsalis pedis and posterior tibial. [] Data : 02/19/22 04:20 02/19/22 04:20 A&P Assessment and plan (1) ST elevation myocardial infarction (STEMI): Status: Acute (2) Generalized anxiety disorder: Status: Acute (3) Major depressive disorder, recurrent, severe with psychotic symptoms: Status: Acute (4) Hypertension: Status: Acute (5) Diabetes: Status: Acute Plan Patient has presented with inferior wall acute ST elevation [place]. Coronary angiogram demonstrated subtotal thrombotic occlusion of proximal RCA. He underwent successful revascularization with MOLLY x1. He has moderate LAD stenosis for which we will do outpatient stress test Patient is doing well now. Continue aspirin and Plavix for at least 1 year High intensity statin therapy. Beta shannen and ACEi therapy. Titrating for blood pressure control ECHO performed. Hospitalist team on board for management of his medical and psychiatric issues. Attestations Medical Necessity Statement*: Care expected to cross 2 midnights. Patient had presented with acute ST elevation [place] and underwent successful revascularization with MOLLY x1 to proximal RCA. Coding Level of Care Code Acute Vehicle Monitor Technician for g Fwd Diagnoses ST elevation myocardial infarction (STEMI) I21.3 Generalized anxiety disorder F41.1 Major depressive disorder, recurrent, severe with psychotic symptoms F33.3 Hypertension I10 Diabetes E11.9
--- NOTE | 2022-02-19 11:19 | P.PN_ITS ---
Subjective Subjective: Patient likely will be discharged in next 24 hours Counseled on use of insulin, requested case reviewer for diabetic lesion he will get Lantus 10 units at bedtime with low-dose sliding scale at the time of discharge Hemoglobin A1c is 10.2 Successful revascularization of RCA MOLLY x1 with stenosis of LAD No active chest pain Patient was eating breakfast Also spoke with his mother Vitals/I&O/Wt Last Vital Signs Temp 98.5 F 02/18/22 20:00 Pulse 78 02/19/22 10:00 Resp 20 H 02/19/22 10:00 BP 122/82 02/19/22 10:00 Pulse Ox 93 02/19/22 09:00 02/18/22 02/19/22 02/19/22 22:59 06:59 14:59 Intake Total 520 / 1220 1480 / 2700 200 / 200 Output Total 750 / 1200 500 / 1700 Balance -230 / 20 980 / 1000 200 / 200 Weight last 48 hrs Weight 104.326 kg Physical Exam Narrative: Patient is eating breakfast No active chest pain Hemodynamically stable Signs of bedbugs on his legs Abdomen soft Awake and alert Poor insight Nonfocal neuro exam Saturating well on room air S1, S2 Data : 02/19/22 04:20 02/19/22 04:20 A&P Assessment and plan (1) Diabetes: Status: Acute (2) Hypertension: Status: Acute (3) ST elevation myocardial infarction (STEMI): Status: Acute (4) Bedbug bite: Status: Acute Plan Successful RCA stent x1 Outpatient stress test for LAD lesion No active chest pain Hemodynamically stable Discharge disposition as per general cardiology Continue on DAPT for 1 year Patient lives alone, has signs of bedbugs Received permethrin treatment today asset protection manager notified for diabetic teaching as well I will increase the dose of Lantus 10 units at night and change sliding scale to moderate dose Acute decompensation of underlying depression Mother notified DVT prophylaxis Lovenox Attestations Medical Necessity Statement*: Discharge planning as per cardiology Time Spent in Patient Care: 30mins Coding Level of Care Code Acute Environment Coordinator for g Fwd Diagnoses Diabetes E11.[address] elevation myocardial infarction (STEMI) I21.3 Bedbug bite W57.XXXA
[2022-02-19 11:38] LABS: Glucose Point of Care 191 mg/dL (70-110)
[2022-02-19] MEDS: enoxaparin 40 mg/0.4 mL Syringe SUBCUT (11:39)
[2022-02-19 16:38] LABS: Glucose Point of Care 200 mg/dL (70-110)
[2022-02-19] MEDS: atorvastatin 40 mg Tablet 80 MG PO (20:24)
[2022-02-19 20:36] LABS: Glucose Point of Care 183 mg/dL (70-110)
[2022-02-19] MEDS: insulin glargine 100 units/1 mL 10 UNIT SUBCUT (21:09)
--- NOTE | 2022-02-19 23:34 | PC.NURSE ---
TRANSFER Pt received to floor from ICU at 2315 via wheelchair. Is alert and oriented. Denies pain or discomfort. digital strategist senior manager applied. IV of NS infusing at 100ml/hr rate. Pt has bites over several areas of body. He tells me they are from chiggers. Is beig treated for scabies. Recived bath in the ICU before transfer to floor to remove cream application for this. Oriented to new room.
[2022-02-20] MEDS: sodium chloride 0.9% 1,000 ML 100 ML IV (00:07)
[2022-02-20 01:01] VITALS: BP 131/88; PULSE 70; RESP 18; TEMP 36.8; O2SAT 95
[2022-02-20 02:22] LABS: Anion Gap 13.5 (5-19); Blood Urea Nitrogen 15 mg/dL (8-23); Calcium 8.6 mg/dL (8.5-10.5); Carbon Dioxide 23 mmol/L (22-29); Chloride 104 mmol/L (98-107); Glomerular Filtration Rate 114.6 mL/min (90-130); Glucose 182 mg/dL (65-115); Osmolality Calculated 289 mOsm/kg (285-295); Potassium 3.5 mmol/L (3.5-5.1); Sodium 137 mmol/L (136-145)
[2022-02-20 05:00] VITALS: BP 135/86; PULSE 69; RESP 16; TEMP 36.4; O2SAT 96
[2022-02-20 06:00] VITALS: PULSE 82
--- NOTE | 2022-02-20 08:34 | P.DS_ITS ---
Discharge Providers Date of Admission: 02/18/22 11:40 Date of Discharge: February 20, 2022 Attending Provider at Admission: Fer Vega M.D Attending Provider at Discharge: Fer Vega M.D Consults: Hospitalist team (Dr Arriaga) Primary Care Provider: Jame Moore NP Diagnoses at Discharge Discharge Diagnosis (1) Diabetes: Status: Acute (2) Hypertension: Status: Acute (3) ST elevation myocardial infarction (STEMI): Status: Acute (4) Bedbug bite: Status: Acute Reason for Visit Reason for Visit: Chest pain Brief History: 61 year old male with a past medical history of hypertension and diabetes not taking any medications has presented with 2 to 3 hours of chest pain symptoms.? It is substernal and radiating to the left arm.? EKG performed shows ST elevations in inferior leads.? Denies any prior cardiac history. Cardiac laborer demolition was activated. Hospital Course Hospital Course 61 year old male with a past medical history of hypertension and diabetes not taking any medications has presented with 2 to 3 hours of chest pain symptoms.? It is substernal and radiating to the left arm.? EKG performed shows ST elevations in inferior leads.? Denies any prior cardiac history. Cardiac laborer demolition was activated that showed subtotal thrombotic occlusion of the proximal RCA that underwent successful revascularization with MOLLY X 1. Also had moderate LAD stenosis. Patient was started on diabetes medications. He was discharge home in a stable condition. Physical Exam Const: OTHER: GENERAL: Patient is alert, awake and oriented x3. [] NECK: No jugular vein distension. [] HEENT: No cyanosis. No icterus. No pallor. [] HEART: Tachycardia, regular S1 and S2. No murmur, rub or gallop. [] LUNGS: Clear to auscultate bilaterally. [] ABDOMEN: Soft, nontender and nondistended. Positive bowel sounds. No guarding, rebound or tenderness. [] CENTRAL NERVOUS SYSTEM: Grossly nonfocal. [] EXTREMITIES: Lower extremities with no edema bilaterally. Pulses palpable in the lower extremities, both dorsalis pedis and posterior tibial. [] Discharge Data Studies Completed and Pending Completed Studies During Hospitalization Category Date Time Status XR chest 1V portable [id number] Stat Exams 02/18/22 10:25 Completed CV. echo complete* [id number] Routine Ultrasound 02/18/22 11:51 Completed Pending at discharge Category Date Time Status CHARTER PILOT request for service Stat Exams 02/18/22 10:31 Taken Radiology Impressions Chest X-Ray 02/18/22 10:25 IMPRESSION: No acute cardiopulmonary abnormality. Laboratory Results WBC 12.9 10^3/uL (4.0-10.0) H 02/19/22 04:20 RBC 5.38 10^6/uL (4.1-5.3) H 02/19/22 04:20 Hgb 15.8 g/dL (11.7-16.6) 02/19/22 04:20 Hct 46.0 % (42.0-52.0) 02/19/22 04:20 MCV 85.5 fl (80-94) 02/19/22 04:20 MCH 29.4 pg (28.0-34.0) 02/19/22 04:20 MCHC 34.3 g/dL (30.0-36.0) 02/19/22 04:20 RDW 13.5 % (12.1-15.1) 02/19/22 04:20 Plt Count 178 10^3/cmm (130-400) 02/19/22 04:20 MPV 12.4 fL (7.4-10.4) H 02/19/22 04:20 Neut % (Auto) 74.0 % 02/19/22 04:20 Lymph % (Auto) 16.9 % 02/19/22 04:20 [place] % (Auto) 8.2 % 02/19/22 04:20 Eos % (Auto) 0.2 % 02/19/22 04:20 Baso % (Auto) 0.2 % 02/19/22 04:20 Neut # (Auto) 9.54 10^3/uL (1.8-7.7) H 02/19/22 04:20 Lymph # (Auto) 2.2 10^3/uL (0.8-4.8) 02/19/22 04:20 [place] # (Auto) 1.1 10^3/uL (0.2-0.9) H 02/19/22 04:20 Eos # (Auto) 0.0 10^3/uL (0.0-0.8) 02/19/22 04:20 Baso # (Auto) 0.0 10^3/uL (0.0-0.1) 02/19/22 04:20 Nucleated RBC % (auto) 0 % 02/19/22 04:20 Nucleated RBCs # 0.0 /100WBC 02/19/22 04:20 Sodium 137 mmol/L (136-145) 02/20/22 01:43 Potassium 3.5 mmol/L (3.5-5.1) 02/20/22 01:43 Chloride 104 mmol/L (98-107) 02/20/22 01:43 Carbon Dioxide 23 mmol/L (22-29) 02/20/22 01:43 Anion Gap 13.5 (5-19) 02/20/22 01:43 BUN 15 mg/dL (8-23) 02/20/22 01:43 Creatinine 0.7 mg/dL (0.7-1.2) 02/20/22 01:43 GFR Calculation 114.6 mL/min (90-130) 02/20/22 01:43 Glucose 182 mg/dL (65-115) H 02/20/22 01:43 POC Glucose 183 mg/dL (70-110) H 02/19/22 20:27 Estimat Average Glucose 246 02/18/22 10:30 Hemoglobin A1c 10.2 % (4.0-6.0) H 02/18/22 10:30 Calculated Osmolality 289 mOsm/kg (285-295) 02/20/22 01:43 Calcium 8.6 mg/dL (8.5-10.5) 02/20/22 01:43 Total Bilirubin 0.8 mg/dL (0.15-1.2) 02/18/22 10:30 AST 37 U/L (0-40) 02/18/22 10:30 ALT 49 U/L (0-41) H 02/18/22 10:30 Alkaline Phosphatase 158 IU/L (40-130) H 02/18/22 10:30 Troponin T Baseline 95 ng/L (0-15) H 02/18/22 10:30 Troponin T 120 Minute 7314 ng/L (0-15) H 02/18/22 13:50 Delta Troponin T 7219 ABS# (0-10) H* 02/18/22 13:50 Troponin T Hi Sens 6Hr > 45014 ng/L (0-15) H 02/18/22 15:45 Troponin T Hi Sens 6Hr Delta TNP 02/18/22 15:45 Total Protein 7.9 g/dL (6.6-8.7) 02/18/22 10:30 Albumin 4.1 g/dL (3.5-5.2) 02/18/22 10:30 Globulin 3.8 g/dL (1.3-4.6) 02/18/22 10:30 Triglycerides 157 mg/dL (0-150) H 02/18/22 10:30 Cholesterol 161 mg/dL (0-200) 02/18/22 10:30 LDL Cholesterol, Calc 92 mg/dL (50-129) 02/18/22 10:30 Total VLDL Cholesterol 31 mg/dL (0-30) H 02/18/22 10:30 HDL Cholesterol 38 mg/dL (60-100) L 02/18/22 10:30 Cholesterol/HDL Ratio 4.24 mg/dL (1.0-5.00) 02/18/22 10:30 TSH 0.62 uIU/mL (0.27-4.20) 02/18/22 15:45 Vitals Last Vital Signs Temp 97.6 F 02/20/22 05:00 Pulse 82 02/20/22 06:00 Resp 16 02/20/22 05:00 BP 135/86 02/20/22 05:00 Pulse Ox 96 02/20/22 05:00 Discharge Plan Discharge Patient Disposition: Home Condition: Stable Prescriptions: New atorvastatin 40 mg Tablet 80 mg PO BEDTIME Qty: 90 3RF clopidogrel 75 mg Tablet 75 mg PO DAILY Qty: 90 3RF aspirin 81 mg Tablet,Delayed Release (Dr/Ec) 81 mg PO DAILY Qty: 90 3RF lisinopril 10 mg Tablet 5 mg PO DAILY Qty: 90 0RF metoprolol tartrate 50 mg Tablet 50 mg PO BID@0900,2100 Qty: 120 3RF Lantus Solostar U-100 Insulin 100 unit/mL (3 mL) insulin pen 10 unit SUBCUT QPM Qty: 15 5RF (DME) Accu-Chek Guide Glucose Meter Misc See Rx Instructions .Route Qty: 1 0RF Rx Instructions: As directed (DME) Accutrend Glucose test strips Strip See Rx Instructions .Route Qty: 50 5RF Rx Instructions: As directed (DME) Lancets,Ultra Thin 26 gauge misc See Rx Instructions .Route Qty: 200 5RF Rx Instructions: As directed Humalog Junior Morse U-100 100 unit/mL insulin pen, half-unit See Protocol unit SUBCUT QAM Qty: 15 5RF Protocol: Insulin Corrective High-Dose Regimen Condition: Fingerstick Blood Glucose Dose/Route: Insulin Units Condition: 141-180 mg/dl Dose/Route: 2 units/SQ Condition: 181-220 mg/dl Dose/Route: 4 units/SQ Condition: 221-260 mg/dl Dose/Route: 6 units/SQ Condition: 261-300 mg/dl Dose/Route: 8 units/SQ Condition: 301-350 mg/dl Dose/Route: 10 units/SQ Condition: 351-400 mg/dl Dose/Route: 12 units/SQ Condition: greater than 400 mg/dl Dose/Route: 14 units/SQ metformin 1,000 mg tablet 1,000 mg PO DAILY Qty: 30 5RF Discharge Orders: Discharge Order (Routine); Ordered 02/20/22 Ordered By: Salvatore Barillas Referrals: Fer Vega M.D [Physician] - 04/20/22 11:15 am Jame Moore NP [Primary Care Provider] - 02/23/22 10:30 am (You have an appointment with Jame Moore this SaturdayFebruary 23 at 1030. Please bring your insurance card to your appointment.) Cassandra Soto FNP [Nurse Practitioner] - 02/26/22 9:15 am Discharge Diet: Cardiac and Diabetic Discharge Activity: Increase activity as tolerated Patient Instructions: Lisinopril (By mouth), Aspirin (By mouth), Metformin (By mouth), Atorvastatin (By mouth), Clopidogrel (By mouth), Insulin Lispro Protamine/Insulin Lispro (By injection), Insulin Glargine (By injection), Coronary Angioplasty (DC), Opioid Safety Activity Restrictions/Additional Instructions: Please do not lift more than 5 pounds of weight for the next 5 days Take Lantus 10 units at night target blood sugar below 90-130mg/dl fasting in the morning Blood sugar below 90 is considered hypoglycemia, do not use insulin if blood sugar below 90 mg/dL Please check your blood sugar before meals I am giving you low-dose sliding scale which can be used before meals Maintain a log for daily blood sugar level and show it to your PCP Discharge Attestations Time Spent in Discharge Care*: greater than 30 min Quality Metrics Clinical Quality Measures [ Acute Myocardial Infaction { Clinical Trial Participant: No; Contraindication to aspirin: None; Aspirin prescribed; Contraindication to statin: None; Statin prescribed; Contraindication to PCI: None; PCI performed;}] Coding Level of Care Code Acute g FW MA note Diagnoses Diabetes E11.[address] elevation myocardial infarction (STEMI) I21.3 Bedbug bite W57.XXXA
[2022-02-20 08:58] LABS: Glucose Point of Care 166 mg/dL (70-110)
[2022-02-20 09:00] VITALS: BP 134/89; PULSE 80; RESP 18; TEMP 36.5; O2SAT 95
[2022-02-20 10:06] VITALS: BP 134/89; PULSE 80; RESP 18; TEMP 36.5; O2SAT 95
[2022-02-20] MEDS: insulin lispro 100 unit/1 mL SUBCUT (10:31)
[2022-02-20] MEDS: permethrin cream 5% 60 gm 7 APPLIC TOPICAL (10:31)
[2022-02-20] MEDS: lisinopril 10 mg Tablet 5 MG PO (10:32)
[2022-02-20] MEDS: ARIPiprazole 10 mg Tablet 5 MG PO (10:33)
[2022-02-20] MEDS: fluoxetine 20 mg Capsule 40 MG PO (10:33)
[2022-02-20] MEDS: metoprolol tartrate 50 mg Tablet PO (10:36)
[2022-02-20] MEDS: aspirin 81 mg EC Tablet PO (10:36)
[2022-02-20] MEDS: clopidogrel 75 mg Tablet PO (10:36)
[2022-02-20 14:04] LABS: Glucose Point of Care 152 mg/dL (70-110)
== END 2022-02-20 12:50 | disposition home or self-care (01) | DRG 247 ==
LOC: ER 10:32 → CCL 10:41 → ICU 12:16 → MEDSURG 02-19 23:11
PROVIDERS: Internal Medicine; Admitting Provider Internal Medicine; Emergency Provider Emergency Medicine; PCP Nurse Practitioner Family; Visit Provider Internal Medicine
PROC: 027034Z Dilation of Coronary Artery, One Artery with Drug-eluting Intraluminal Device, Percutaneous Approach (ICD-10-PCS; principal; 2022-02-18 10:30)
PROC: 027034Z Dilation of Coronary Artery, One Artery with Drug-eluting Intraluminal Device, Percutaneous Approach (ICD-10-PCS; 2022-02-18 10:30)
DX: I21.11 ST elevation (STEMI) myocardial infarction involving right coronary artery (principal); F33.9 Major depressive disorder, recurrent, unspecified; I25.10 Atherosclerotic heart disease of native coronary artery without angina pectoris; F41.1 Generalized anxiety disorder; Z87.891 Personal history of nicotine dependence; E11.9 Type 2 diabetes mellitus without complications; Z91.14 Patient's other noncompliance with medication regimen; T14.8XXA Other injury of unspecified body region, initial encounter; W57.XXXA Bitten or stung by nonvenomous insect and other nonvenomous arthropods, initial encounter
CPT/HCPCS: 36415; 36416; 71045; 80048; 80053; 80061; 82962; 83036; 84443; 84484; 85025; 85347; 92978; 93005; 93306; 93454; 96360; 96372; 96374; 96375; 99152; 99153; 99285; C1725; C1753; C1769; C1874; C1887; C1894; C9600; J0360; J1644; J1650; J1815 ×2; J2250; J2270; J2405; J3010; J3490; J7030; Q9967

== ENCOUNTER → 2022-02-26 14:58 | Outpatient (BNVA) | payer MEDICARE, SELFPAY | PROVIDERS: PCP Nurse Practitioner Family; Visit Provider Nurse Practitioner Family | DX: I25.10 Atherosclerotic heart disease of native coronary artery without angina pectoris (principal); I10 Essential (primary) hypertension; Z87.891 Personal history of nicotine dependence | CPT/HCPCS: 36415; 80048; 99214 ==

== ENCOUNTER → 2022-04-20 11:39 | Outpatient (BNVA) | payer MEDICARE, SELFPAY | PROVIDERS: PCP Nurse Practitioner Family; Visit Provider Internal Medicine | DX: I25.10 Atherosclerotic heart disease of native coronary artery without angina pectoris (principal); I10 Essential (primary) hypertension; I25.2 Old myocardial infarction; Z87.891 Personal history of nicotine dependence | CPT/HCPCS: 99214 ==

== ENCOUNTER 2022-12-01 05:56 | Emergency (ER) | payer MEDICARE, SELFPAY ==
[2022-12-01 06:00] VITALS: BP 146/93; PULSE 87; RESP 18; TEMP 36.8; O2SAT 96; BMI 24.4
--- NOTE | 2022-12-01 06:40 | ED_ITS ---
HPI - Male Genitourinary General: Chief complaint: Urogenital-Male Stated complaint: pain in groan Time Seen by Provider: 12/01/22 06:12 Source: patient Mode of arrival: ambulatory History of Present Illness: 60-year-old male presents emergency room complaining of swelling to the glans of the penis. Its been itching burning and become red and uncomfortable he says difficult time urinating. It began yesterday and has progressively worsened. He does have a history of diabetes mellitus he is on insulin and metformin. He denies dysuria urgency or frequency no flank pain Onset (ago): day(s) (1) Duration: constant Location: penis Severity: moderate Quality: burning Relieving factors: none Exacerbating factors: none Associated symptoms: Reports swelling and urinary retention; Deny discharge, dysuria, fevers/chills, hematuria, nausea, rash, urinary incontinence, mass or vomiting Review of Systems Const: Denies: fever(s), chills, body aches, change in appetite, fatigue or malaise ENMT: Denies: throat pain, ear or mastoid pain, nasal discharge or nasal congestion Card: Denies: chest pain, edema, dyspnea on exertion or orthopnea Resp: Denies: dyspnea, productive cough or non-productive cough GI: Denies: nausea or vomiting : Denies: dysuria, urinary incontinence or hematuria Skin/Breast: Denies: rash or pruritus PFSH ED PFSH: Medical History Atherosclerosis of coronary artery Bedbug bite Generalized anxiety disorder Major depressive disorder, recurrent, severe with psychotic symptoms On combination antipsychotic drug therapy ST elevation myocardial infarction (STEMI) Social History Smoking and tobacco status: former smoker Physical Exam Const: COMMON NORMALS: no acute distress GENERAL APPEARANCE: cooperative and comfortable ORIENTATION/CONSCIOUSNESS: Yes awake, Yes oriented to person, Yes oriented to place and Yes oriented to time HENMT: COMMON NORMALS: normocephalic, atraumatic and hearing grossly normal bilaterally HEAD & SCALP: normocephalic and atraumatic Resp: COMMON NORMALS: normal respiratory effort, No retractions, No use of accessory muscles and clear to auscultation bilaterally AUSCULTATION: clear to auscultation bilaterally Cardio: COMMON NORMALS: regular rate, regular rhythm and No murmurs present (Cardio) RATE: regular rate RHYTHM: regular rhythm GI: COMMON NORMALS: Soft to palpation and No hepatosplenomegaly present AUSCULTATION: Yes normoactive bowel sounds PALPATION: Yes Soft to palpation, No Tenderness to palpation present (GI), No Guarding due to palpation present (GI) and Yes No hepatosplenomegaly present : COMMON NORMALS: Yes no CVA tenderness BLADDER/KIDNEY EXAM: Yes no CVA tenderness OTHER: Examination of the penis glans is significant redness and swelling. Back/Pelvis: COMMON NORMALS: no CVA tenderness Extremity: COMMON NORMALS: normal to inspection, capillary refill normal, no clubbing, cyanosis or edema, no calf tenderness and no pedal edema Neuro: SENSORIUM/ORIENTATION: Yes oriented to person, Yes oriented to place and Yes oriented to time Skin: COMMON NORMALS: no rashes or lesions noted GENERAL SKIN EXAM: no rashes or lesions noted Course Vital Signs: Vital signs: Vital Signs Temperature 98.2 F 12/01/22 06:00 Pulse Rate 78 12/01/22 07:37 Respiratory Rate 18 12/01/22 06:00 Blood Pressure 166/103 12/01/22 07:37 Pulse Oximetry 97 12/01/22 07:37 MDM - Male Medical Decision Making Balanitis with urinary retention and UTI. After placement of Stiles he had an excess of 400 out. We will start him on Flomax and Macrobid culture his urine. Clotrimazole for the balanitis. Follow-up with his primary care doctor within the week return if he has further problems. Nursing staff placed a leg bag him and demonstrated to him how to empty the bag. Medical Records I reviewed the patient's medical records. Lab Data I reviewed the patient's lab results. Laboratory Results Urine Color Yellow (Yellow) 12/01/22 07:05 Urine Appearance Hazy (CLEAR) A 12/01/22 07:05 Urine pH 6 (5-7) 12/01/22 07:05 Ur Specific [place] 1.020 (1.005-1.030) 12/01/22 07:05 Urine Protein 3+ (Negative) H 12/01/22 07:05 Urine Glucose (UA) 4+ (Normal) H 12/01/22 07:05 Urine Ketones Negative (Negative) 12/01/22 07:05 Urine Blood 2+ (Negative) H 12/01/22 07:05 Urine Nitrate Negative (Negative) 12/01/22 07:05 Urine Bilirubin Neg (Negative) 12/01/22 07:05 Urine Urobilinogen Norm mg/dL (Negative) 12/01/22 07:05 Ur Leukocyte Esterase 2+ (Negative) H 12/01/22 07:05 Urine RBC 5-10 /hpf (0-2) H 12/01/22 07:05 Urine WBC Too numerous to cnt /hpf (0-5) H 12/01/22 07:05 Ur Squamous Epith Cells Rare /hpf (0-5) 12/01/22 07:05 Amorphous Sediment Not Reportable 12/01/22 07:05 Urine Bacteria 1+ /hpf (NONE) H 12/01/22 07:05 Discharge Plan Discharge Patient Disposition: Home Clinical Impression: Balanitis, Diabetes, Urinary tract infection, Acute retention of urine Condition: Stable Prescriptions: New Flomax 0.4 mg capsule 0.4 mg PO DAILY Qty: 30 0RF Macrobid 100 mg capsule 100 mg PO BID 7 Days Qty: 14 0RF Rx Instructions: must administer with a meal/food clotrimazole 1 % cream 1 applic topical BID 14 Days Qty: 45 0RF No Action lisinopril 10 mg tablet 20 mg PO DAILY fluoxetine 10 mg tablet 10 mg PO DAILY metoprolol tartrate 50 mg tablet 100 mg PO BID@0900,2100 clopidogrel 75 mg tablet 75 mg PO DAILY Qty: 90 3RF aspirin 81 mg Tablet,Delayed Release (Dr/Ec) 81 mg PO DAILY Qty: 90 3RF Lantus Solostar U-100 Insulin 100 unit/mL (3 mL) insulin pen 10 unit SUBCUT QPM Qty: 15 5RF (DME) Accu-Chek Guide Glucose Meter Misc See Rx Instructions .Route Qty: 1 0RF Rx Instructions: As directed (DME) Accutrend Glucose test strips Strip See Rx Instructions .Route Qty: 50 5RF Rx Instructions: As directed (DME) Lancets,Ultra Thin 26 gauge misc See Rx Instructions .Route Qty: 200 5RF Rx Instructions: As directed Humalog Laci KwikPen U-100 100 unit/mL insulin pen, half-unit See Protocol SUBCUT QAM Qty: 15 5RF Protocol: Insulin Corrective High-Dose Regimen Condition: Fingerstick Blood Glucose Dose/Route: Insulin Units Condition: 141-180 mg/dl Dose/Route: 2 units/SQ Condition: 181-220 mg/dl Dose/Route: 4 units/SQ Condition: 221-260 mg/dl Dose/Route: 6 units/SQ Condition: 261-300 mg/dl Dose/Route: 8 units/SQ Condition: 301-350 mg/dl Dose/Route: 10 units/SQ Condition: 351-400 mg/dl Dose/Route: 12 units/SQ Condition: greater than 400 mg/dl Dose/Route: 14 units/SQ metformin 1,000 mg tablet 1,000 mg PO DAILY Qty: 30 5RF Discharge Orders: Discharge ED (Routine); Ordered 12/01/22 Ordered By: Homero El Referrals: Jame Moore NP [Primary Care Provider] - Patient Instructions: Opioid Safety, Pain Management Activity Restrictions/Additional Instructions: You were seen for balanitis which is a swelling of the tip of the penis. Uses topical medications given. You are also found to have acute urinary retention a Stiles catheter was placed and was started on Flomax. Finally you did have signs of urinary tract infection you were given oral antibiotics. You should follow- up with primary care doctor within the next week. Coding Level of Care Code ED [employer] for Rahat Barlow
[2022-12-01] MEDS: ketorolac 30 mg/mL INJ 60 MG IM (07:18)
[2022-12-01 07:37] VITALS: BP 166/103; PULSE 78; O2SAT 97
[2022-12-01 07:45] LABS: Bilirubin Urine Neg (Negative); Blood Urine 2+ (Negative); Glucose Urine UA 4+ (Normal); Ketones Urine Negative (Negative); Nitrate Urine Negative (Negative); Protein Urine 3+ (Negative); Urine Appearance Hazy (CLEAR); Urine Color Yellow (Yellow); pH Urine 6 (5-7)
[2022-12-01 07:46] LABS: Add Urine Microscopic? YES; Leukocyte Esterase Urine 2+ (Negative); Urobilinogen Urine Norm (Negative)
[2022-12-01 07:49] LABS: Bacteria Urine 1+ /hpf; Squamous Epithelial Cell Urine RARE /hpf (0-5); WBC Urine TOO NUMEROUS TO CNT /hpf (0-5)
[2022-12-01 07:50] LABS: Add Urine Culture? Yes
[2022-12-01] MEDS: bacitracin ointment Pkt 1 EACH TOPICAL (08:02)
[2022-12-01 08:50] VITALS: BP 145/99; PULSE 74; O2SAT 98
== END 2022-12-01 08:54 | disposition home or self-care (01) ==
PROVIDERS: Emergency Provider Family Medicine; PCP Nurse Practitioner Family
DX: N48.1 Balanitis (principal); N39.0 Urinary tract infection, site not specified; R33.9 Retention of urine, unspecified; E11.9 Type 2 diabetes mellitus without complications; I25.10 Atherosclerotic heart disease of native coronary artery without angina pectoris; I25.2 Old myocardial infarction; Z79.4 Long term (current) use of insulin; Z79.84 Long term (current) use of oral hypoglycemic drugs; Z87.891 Personal history of nicotine dependence
CPT/HCPCS: 51702; 51798; 81001; 87086; 96372; 99284; J1885

== ENCOUNTER 2024-05-06 08:00 | Outpatient (CLI) | payer MEDICARE, SELFPAY ==
--- NOTE | 2024-05-06 08:07 | US_ITS ---
WS: [id number] ULTRASOUND ABDOMEN LIMITED CLINICAL INFORMATION: ELEVATED LIVER ENZYMES COMPARISON: None. FINDINGS: Liver Size: Enlarged Craniocaudal length: 16.9 cm. Echogenicity: Coarse Surface nodularity: None. Mass (size and location): None. Bile ducts Intrahepatic ducts: Normal. Common bile duct diameter: 0.4 cm. Gallbladder Normal. Gallstones: None. Gallbladder sludge: None. Gallbladder wall thickening: None. Pericholecystic fluid: None. Sonographic [place] sign: Absent. Pancreas Normal as visualized. Right kidney: Dilated RIGHT renal pelvis is unchanged since the prior CT 2017. Small simple RIGHT tobias al cyst measuring 6 x 8 x 8 mm Hydronephrosis: None. Size: 14.4 cm x 7.2 cm x 6.6 cm. Abdominal aorta and IVC Visualized portions are normal. Ascites: None. US/US abdomen limited 34095 IMPRESSION: 1. Small simple RIGHT renal cyst measuring 6 x 8 x 8 mm 2. Mild hepatomegaly with coarse echogenicity likely due to fatty infiltration . Recommend correlation with liver function tests.. 3. Normal gallbladder. 4. Normal common bile duct.
== END 2024-05-06 08:01 | disposition home or self-care (01) ==
LOC: RAD 08:02
PROVIDERS: PCP Nurse Practitioner Family; Visit Provider Nurse Practitioner Family
DX: N28.1 Cyst of kidney, acquired (principal); R16.0 Hepatomegaly, not elsewhere classified; R74.8 Abnormal levels of other serum enzymes
CPT/HCPCS: 76705